=== PATIENT | female | born 1970 | race Two or more races ===

== ENCOUNTER 2020-07-01 17:15 | Outpatient (CLI) | payer OTHER ==
[~2020-07-01 17:15] MED LIST: AMOX1TAB12 PO; DOLOGESIC CAPSU1 CAP PO
== END 2020-07-01 17:21 | disposition home or self-care (01) ==
LOC: LAB 17:15
DX: R31.21 Asymptomatic microscopic hematuria (principal); E55.9 Vitamin D deficiency, unspecified; G43.009 Migraine without aura, not intractable, without status migrainosus

== ENCOUNTER 2020-11-10 18:19 | Emergency (ER) | payer OTHER ==
[~2020-11-10] VITALS: Ht 165.1 cm; Wt 54.4 kg
== END 2020-11-11 00:28 | disposition home or self-care (01) ==
LOC: ER 18:19
DX: M54.5 Low back pain (principal)

== ENCOUNTER 2020-11-21 17:06 | Emergency (ER) | payer OTHER ==
[~2020-11-21] VITALS: Ht 167.6 cm; Wt 54.4 kg
[2020-11-21] MEDS ORDERED: TOPAMAX25 MG (17:19)
[2020-11-21] MEDS ORDERED: IMITREX20 MG (17:20)
[2020-11-21] MEDS ORDERED: BACTRIM DS TAB1 EACH PO (20:43)
== END 2020-11-21 20:47 | disposition home or self-care (01) ==
LOC: ER 17:06
DX: B34.9 Viral infection, unspecified (principal); Z11.52 Encounter for screening for COVID-19

== ENCOUNTER 2021-08-04 17:12 | Emergency (ER) | payer OTHER ==
[~2021-08-04] VITALS: Ht 165.1 cm; Wt 54.4 kg
[~2021-08-04 17:12] MED LIST changes: +BACTRIM DS TAB1 EACH PO; +IMITREX20 MG; +TOPAMAX25 MG
[2021-08-04] MEDS ORDERED: ADDERALL 20 MG20 MG PO (17:32)
[2021-08-04] MEDS ORDERED: NURTEC ODT75 MG PO (17:32)
== END 2021-08-04 20:34 | disposition home or self-care (01) ==
LOC: ER 17:12
DX: J34.89 Other specified disorders of nose and nasal sinuses (principal)

== ENCOUNTER → 2023-01-11 | Emergency (ER) | payer OTHER ==
[~2023-01-11] VITALS: Ht 165.1 cm; Wt 63.5 kg
[~2023-01-11] MED LIST changes: +ADDERALL 20 MG20 MG PO; +NURTEC ODT75 MG PO
== END | disposition left against medical advice (07) ==
LOC: ER 20:46
DX: Z53.21 Procedure and treatment not carried out due to patient leaving prior to being seen by health care provider (principal)

== ENCOUNTER 2023-02-09 11:07 | Emergency (ER) | payer OTHER ==
[~2023-02-09] VITALS: Ht 167.6 cm; Wt 72.6 kg
== END 2023-02-09 15:35 | disposition home or self-care (01) ==
LOC: ER 11:07
PROVIDERS: Emergency Medicine
DX: N39.0 Urinary tract infection, site not specified (principal); R10.2 Pelvic and perineal pain; Z87.440 Personal history of urinary (tract) infections; N83.292 Other ovarian cyst, left side; N83.291 Other ovarian cyst, right side
CPT/HCPCS: 36415; 76830; 96372; 99284; J1885

== ENCOUNTER 2024-03-12 13:52 | Emergency (ER) | payer OTHER ==
[~2024-03-12] VITALS: Ht 165.1 cm; Wt 65.8 kg
[2024-03-12] MEDS ORDERED: SUMATRIPTAN SUCCINATE 6 MG/0.5 ML VIAL SUBCUTANEO STA (14:44)
[2024-03-12] MEDS ORDERED: METOCLOPRAMIDE HCL 10 MG in DEXTROSE 5 % IN WATER 50 ML IV ONE (14:45)
== END 2024-03-12 16:04 | disposition home or self-care (01) ==
LOC: ER 13:54
DX: G43.909 Migraine, unspecified, not intractable, without status migrainosus (principal)

== ENCOUNTER → 2024-09-20 | Emergency (ER) | payer OTHER ==
[~2024-09-20] VITALS: Ht 152.4 cm; Wt 61.2 kg
[2024-09-20 20:15] LABS: HEMATOCRIT 39.3 % (36.0-45.00); PLATELET COUNT 223 K/uL (150-450); RED BLOOD COUNT 4.18 M/uL (4.00-6.00); RED CELL DISTRIBUTION WIDTH 13.4 % (11.5-14.5)
[2024-09-20 20:33] LABS: CALCIUM 9.9 mg/dL (8.5-10.1); CREATININE SERUM 0.93 mg/dL (0.55-1.02); GFR 63.06; POTASSIUM 4.45 mEq/L (3.5-5.1)
== END | disposition home or self-care (01) ==
LOC: ER 18:26
PROVIDERS: General Practice
DX: R00.2 Palpitations (principal)

== ENCOUNTER 2025-04-30 15:49 | Outpatient (CLI) | payer OTHER | END 2025-04-30 15:51 | disposition home or self-care (01) | LOC: RAD 15:49 | DX: M54.2 Cervicalgia (principal); R51.9 Headache, unspecified ==